=== PATIENT | female | born 1965 | race Caucasian/White ===

== ENCOUNTER 2022-08-21 13:44 | Outpatient (CLI) | payer BC ==
[~2022-08-21 13:44] MED LIST: Magnevist 469MG/ML 20 ML VIAL ONE
== END 2022-08-21 13:45 | disposition home or self-care (01) ==
LOC: CSHMRI 13:44
PROVIDERS: ATTEND Student in an Organized Health Care Education/Training Program
DX: D32.9 Benign neoplasm of meninges, unspecified (principal); D32.0 Benign neoplasm of cerebral meninges
CPT/HCPCS: 70553